=== PATIENT | male | born 1950 | race Caucasian/White ===

== ENCOUNTER 2017-05-18 09:31 | Emergency (ER) | payer MEDICARE ==
[~2017-05-18] VITALS: Ht 175.3 cm; Wt 93.7 kg
[2017-05-18 12:06] VITALS: BP 185/112
== END 2017-05-18 12:08 | disposition home or self-care (01) ==
LOC: ED 10:42
DX: I10 Essential (primary) hypertension (principal)
CPT/HCPCS: 99283